=== PATIENT | male | born 1995 | race Caucasian/White ===

== ENCOUNTER 2023-01-27 20:18 | Emergency (ER) | payer OTHER ==
[2023-01-27 20:46] LABS: MUDS CUTOFF CONCENTRATIONS CUTOFF CONC BELOW:
[2023-01-27 20:48] LABS: BILIRUBIN,URINE NEGATIVE (NEGATIVE); GLUCOSE, URINE (UA) NEGATIVE (NEGATIVE); KETONES,URINE (UA) NEGATIVE (NEGATIVE); LEUKOCYTE ESTERASE, URINE NEGATIVE (NEGATIVE); NITRITE,URINE NEGATIVE (NEGATIVE); OCCULT BLOOD,URINE NEGATIVE (NEGATIVE); PH,URINE 6.5 PH (5.0-7.5); PROTEIN,URINE 100 mg/dL (NEGATIVE); UROBILINOGEN,URINE 0.2 (NORMAL) E.U./dL (NORMAL)
[2023-01-27 20:50] LABS: CLARITY,URINE CLEAR (CLEAR)
[2023-01-27 20:56] LABS: BASOPHILS % (AUTO) 0.8 %; EOSINOPHILS % (AUTO) 0.2 %; HCT - HEMATOCRIT 49.6 % (42.0-52.0); HGB - HEMOGLOBIN 16.8 g/dL (14.0-18.0); LYMPHOCYTES # (AUTO) 2.1 10^3/uL (1.5-3.5); MEAN CORPUSCULAR HEMOGLOBIN 30.3 pg (27.0-31.0); MEAN CORPUSCULAR HGB CONC 33.9 g/dL (32.0-36.0); MEAN CORPUSCULAR VOLUME 89.5 fL (80.0-94.0); MEAN PLATELET VOLUME 8.9 fL (7.4-11.4); MONOCYTES # (AUTO) 0.4 10^3/uL (0.0-1.0); MONOCYTES % (AUTO) 7.4 %; NEUTROPHILS # (AUTO) 2.5 10^3/uL (1.5-6.6); NEUTROPHILS % (AUTO) 49.4 %; PLT - PLATELET COUNT 292 10^3/uL (130-450); RED BLOOD COUNT 5.54 10^6/uL (4.70-6.10)
[2023-01-27 21:00] LABS: AMPHETAMINE SCREEN,URINE NEGATIVE (NEGATIVE); BARBITURATE SCREEN,UR NEGATIVE (NEGATIVE); BENZODIAZEPINES SCREEN, URINE NEGATIVE (NEGATIVE); COCAINE SCREEN URINE NEGATIVE (NEGATIVE); METHADONE SCREEN, URINE NEGATIVE (NEGATIVE); METHAMPHETAMINES SCREEN, URINE NEGATIVE (NEGATIVE); OPIATE SCREEN, URINE NEGATIVE (NEGATIVE); OXYCODONE SCREEN, URINE NEGATIVE (NEGATIVE); PROPOXYPHENE SCREEN, URINE NEGATIVE (NEGATIVE); THC CANNABINOID SCREEN, URINE NEGATIVE (NEGATIVE); TRICYCLIC ANTIDEPRESSANT,URINE NEGATIVE (NEGATIVE)
[2023-01-27 21:02] LABS: BACTERIA,URINE None Seen /HPF (None Seen); MUCUS,URINE Few Strands; RBC,URINE 0-5 /HPF (0-5); SQUAMOUS EPITHELIAL CELL,UR NONE SEEN (<= Few); WBC,URINE 0-3 /HPF (0-3)
[2023-01-27 21:10] LABS: ACETAMINOPHEN < 10 ug/mL (10-30); ALBUMIN 4.8 g/dL (3.2-5.5); ALBUMIN/GLOBULIN RATIO 1.5 (1.0-2.2); ALKALINE PHOSPHATASE 44 IU/L (42-121); ALT ALANINE AMINOTRANSFERASE 32 IU/L (10-60); AST ASPARTATE AMINOTRANSFERASE 24 IU/L (10-42); BUN - BLOOD UREA NITROGEN 14 mg/dL (6-20); CALCIUM 9.6 mg/dL (8.5-10.3); CARBON DIOXIDE - CO2 26 mmol/L (21-32); CHLORIDE 103 mmol/L (101-111); CREATININE 0.9 mg/dL (0.6-1.2); ETOH - ETHANOL < 5.0 mg/dL; GFR - MDRD 102 (>89); GLUCOSE 107 mg/dL (70-100); LIPASE 25 U/L (22-51); POTASSIUM 3.7 mmol/L (3.5-5.0); SALICYLATE < 6.0 mg/dL; SODIUM 140 mmol/L (135-145)
--- NOTE | 2023-01-27 21:13 | ED Physician Documentation ---
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 Patient reports at times having thoughts of hurting himself but states that he loves his parents too much and would never actually do anything to hurt himself. He has denied ever attempting to harm himself in the past. He has occasionally been seen at the behavioral clinic at the formerly [facility] for depression. He states that at 1 point he was given 4 pills of Zoloft while he was on a boat. 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 He reports stressors in his personal and job life. He had a DUI 1 month ago. He reports drinking on the weekends. No drug use. No hallucinations. He lives in the [facility]. Review of Systems Constitutional: denies: Fever Cardiac: denies: Chest pain / pressure Respiratory: denies: Dyspnea GI: denies: Abdominal Pain Psychiatric: reports: Depressed PD PAST MEDICAL HISTORY - Present Medications Home Medications: Ambulatory Orders Medication Instructions Recorded Confirmed Sertraline [Zoloft] 50 mg PO DAILY #30 tablet 01/27/23 traZODone [Desyrel] 100 mg PO HS 14 Days #28 tablet 01/27/23 - Allergies Allergies/Adverse Reactions: Allergies Allergy/AdvReac Type Severity Reaction Status Date / Time No Known Drug Allergies Allergy Verified 01/27/23 20:37 PD ED PE NORMAL - General General: Alert and oriented X 3, No acute distress, Well developed/nourished - HEENT HEENT: Atraumatic - Neck Neck: Supple, no meningeal sign - Cardiac Cardiac: RRR, No murmur - Respiratory Respiratory: No respiratory distress, Clear bilaterally - Abdomen Abdomen: Soft, Non tender - Derm Derm: Warm and dry - Neuro Neuro: Alert and oriented X 3, No motor deficit, Normal speech Results - Vitals Vitals: Vital Signs - 24 hr 01/27/23 01/27/23 20:26 23:22 Temperature 36.8 C Heart Rate 65 69 Respiratory 18 16 Rate Blood Pressure 146/91 H 149/82 H O2 Saturation 99 100 Oxygen O2 Source Room air - Labs Labs: Laboratory Tests 01/27/23 01/27/23 01/27/23 20:40 20:50 20:50 WBC 5.0 RBC 5.54 Hgb 16.8 Hct 49.6 MCV 89.5 MCH 30.3 MCHC 33.9 RDW 12.0 Plt Count 292 MPV 8.9 Neut # (Auto) 2.5 Lymph # (Auto) 2.1 Barry # (Auto) 0.4 Eos # (Auto) 0.0 Baso # (Auto) 0.0 Absolute Nucleated RBC 0.00 Nucleated RBC % 0.0 Sodium 140 Potassium 3.7 Chloride 103 Carbon Dioxide 26 Anion Gap 11.0 BUN 14 Creatinine 0.9 Estimated GFR (MDRD) 102 Glucose 107 H Calcium 9.6 Total Bilirubin 1.0 AST 24 ALT 32 Alkaline Phosphatase 44 Total Protein 8.0 Albumin 4.8 Globulin 3.2 Albumin/Globulin Ratio 1.5 Lipase 25 TSH Urine Color YELLOW Urine Clarity CLEAR Urine pH 6.5 Ur Specific Mize >=1.030 H Urine Protein 100 H Urine Glucose (UA) NEGATIVE Urine Ketones NEGATIVE Urine Occult Blood NEGATIVE Urine Nitrite NEGATIVE Urine Bilirubin NEGATIVE Urine Urobilinogen 0.2 (NORMAL) Ur Leukocyte Esterase NEGATIVE Urine RBC 0-5 Urine WBC 0-3 Ur Squamous Epith Cells NONE SEEN Urine Bacteria None Seen Urine Mucus Few Strands Ur Microscopic Review INDICATED Urine Culture Comments NOT INDICATED Salicylates < 6.0 Urine Opiates Screen NEGATIVE Ur Oxycodone Screen NEGATIVE Urine Methadone Screen NEGATIVE Ur Propoxyphene Screen NEGATIVE Acetaminophen < 10 L Ur Barbiturates Screen NEGATIVE Ur Tricyclics Screen NEGATIVE Ur Phencyclidine Scrn NEGATIVE Ur Amphetamine Screen NEGATIVE U Methamphetamines Scrn NEGATIVE U Benzodiazepines Scrn NEGATIVE Urine Cocaine Screen NEGATIVE U Cannabinoids Screen NEGATIVE Ethyl Alcohol < 5.0 01/27/23 20:50 WBC RBC Hgb Hct MCV MCH MCHC RDW Plt Count MPV Neut # (Auto) Lymph # (Auto) Barry # (Auto) Eos # (Auto) Baso # (Auto) Absolute Nucleated RBC Nucleated RBC % Sodium Potassium Chloride Carbon Dioxide Anion Gap BUN Creatinine Estimated GFR (MDRD) Glucose Calcium Total Bilirubin AST ALT Alkaline Phosphatase Total Protein Albumin Globulin Albumin/Globulin Ratio Lipase TSH 1.95 Urine Color Urine Clarity Urine pH Ur Specific Mize Urine Protein Urine Glucose (UA) Urine Ketones Urine Occult Blood Urine Nitrite Urine Bilirubin Urine Urobilinogen Ur Leukocyte Esterase Urine RBC Urine WBC Ur Squamous Epith Cells Urine Bacteria Urine Mucus Ur Microscopic Review Urine Culture Comments Salicylates Urine Opiates Screen Ur Oxycodone Screen Urine Methadone Screen Ur Propoxyphene Screen Acetaminophen Ur Barbiturates Screen Ur Tricyclics Screen Ur Phencyclidine Scrn Ur Amphetamine Screen U Methamphetamines Scrn U Benzodiazepines Scrn Urine Cocaine Screen U Cannabinoids Screen Ethyl Alcohol PD Medical Decision Making - ED course Complexity details: reviewed results, re-evaluated patient, d/w patient ED course: 2114: Labs Reviewed without any significant findings. Patient is medically cleared. Telepsychiatry consult has been requested. Patient presenting for evaluation of depression and having passive suicidal thoughts. Vital signs appear stable and patient has been medically cleared. He is acting appropriately here and does not appear intoxicated. He was seen by telepsychiatry. They feel at this time that he is safe for outpatient management. They do recommend we start him on Zoloft as well as trazodone. Patient is agreeable to these medications. He additionally understands that he needs to have close follow-up at the [facility]. I did also give him information for [facility] if he wants to pursue counseling services there. He feels safe going home tonight and Understands that he can return at anytime with any worsening symptoms. 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 If it anytime you have thoughts of hurting yourself or feeling worse please call 911 or return to the emergency department. [facility] Another resource for counseling in the community is through [facility]: Follow-up with [facility] at [phone] to schedule psychiatric care and counseling. Forms: Activity restrictions Discharge Date/Time: 01/27/23 23:35
--- NOTE | 2023-01-27 22:51 | TELEPSYCH PHYS NOTE ---
Telepsych Consultation Note Consult: Name: JUSTIN WEAVERB: 09/04/1940 DateandTime: 01/28/2023 1:23:07 AM Location of the patient: [facility] EDLocation of the doctor: Jose Length of consult: 1 hour This evaluation was conducted via video telepsychiatry with the assistance of onsite staff Reason for consult: SI, depression Requested by: DR KUMAR History of Present Illness: Provider/nurse contacted: SANDRA Canas, Dr. Kenney Psych consulted for: SI Chief complaint: I am extremely depression. Psych Consult HPI: Pt is a 27yo M with a past psych hx of depression, PTSD who presents for SI. Pt admits to SI w/ no plan or intention for off and on for 2 months. Endorses severe depression. Stressors include insomnia, work stress, DUI recently, car . Pt has no past psych hospitalizations and prior SAs. Endorses insomnia issues 05/14. Denies recent PTSD sxs. Pt does not feel he is a current danger to himself. Admits binge drinking on the week, bottle of bourbon on weekend days. Pt has never been treated with psych meds. Denies HI/AVH. [employer], Abdulaziz Cain [phone], has severe depression but no concerns of suicide at this time. Pt is safe to be DCd home. 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 Patient reports at times having thoughts of hurting himself but states that he loves his parents too much and would never actually do anything to hurt himself. He has denied ever attempting to harm himself in the past. He has occasionally been seen at the behavioral clinic at the [employer] [facility] for depression. He states that at 1 point he was given 4 pills of Zoloft while he was on a boat. 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 He reports stressors in his personal and job life. He had a DUI 1 month ago. He reports drinking on the weekends. No drug use. No hallucinations. He lives in the [facility]. Collateral Contacted: YesCollateral name:[employer], Abdulaziz Ferrara- [phone] phone number:Collateral relationship to the patient: Sleep issues?: YesSleep Quantity:Sleep Quality: Psychiatric History/Treatment History: Past diagnoses: depression, PTSD Hospitalizations: No Current Treatment:No Suicide Assessment: PSS-3: 1) Over the past 2 weeks have you felt down, depressed or hopeless?Yes 2) Over the past 2 weeks have you had thoughts of killing yourself?Yes 3) Have you ever in your life attempted to kill yourself?No Within the past 6 months? PSS-3 Secondary Screen: 1) Positive on PSS-3 questions 2 & 3 active SI with a past attempt?No 2) Have you been thinking about how you might kill yourself?No 3) Have you had some intention of acting on your thoughts?No 4) Lifetime psychiatric hospitalization?No 5) Has drinking or substance abuse ever been a problem for you?Yes 6) Current irritability, agitation, or aggression?No PSS-3 Secondary Screen Scoring: Mild Notes: Mild(0-2) No current attempt and no plan/intent Moderate(3-4) No current attempt, Plan OR intent but not both Severe(5-6) [facility] Safety Assessment: Risk Factors Stressors: insomnia, work stress, DUI recently, car Attempts/Self-injury: No Impulsivity:No Drug/Alcohol History:YesDescription: Trauma History:YesDescription:PTSD Access to firearms:No HI/Violence/Property destruction:No Legal: YesDescription:recent DUI Family Psych History:YesDescription:"they are all crazy" Family History of suicide: Protective Factors: Can handle stress well?No Yarsanism?Unknown-NA External: Social supports/ Therapeutic relationships: YesDescription: Relationship history: single Living situation: lives in housing Employment: YesDescription: Education: completed HS Responsibility to family/children/work: YesDescription: Future orientation:YesDescription: Health History: Medical History: denies Medications & Freq: denies Allergies: NKDA Mental Status Exam: Appearance and Attire:Normal Psychomotor agitation:No abnormality Attitude and behavior:Cooperative Speech:No abnormality, Mood:Depressed Affect:Constricted Thought process:Linear Thought content:No abnormality Perception: Intel:Above average Abstract:Appropriate Language:No abnormality Orientation:Oriented x 4 Sense:Normal Knowledge:Appropriate for education and socioeconomic status Memory:Intact Insight:Appropriate Judgement:Appropriate Gait:No abnormality Impression/Risk Assessment: Current Suicide Risk Elevated?No Current Violence Risk Elevated?No Issues with ability to care for self?No Summary: Clinical impression: Mood d/o NOS Current Suicide Risk: low Current Violence Risk: low Suicide Risk Detail Assessment 3 mo.suic.&self-inj behavior: no actual suicidal attempt Lifetime-suic.&self-inj behavior: no actual suicidal attempt Most severe SI past month: no suicide thoughts Risk Assessment: Pt appears to be low risk for harm to self or others as evidenced by denial of SI/HI/AVH. No delusions, disorganization, aggression n oted. Pt is a 27yo M with a past psych hx of depression, PTSD who presents for SI. Pt denies any plan or intent and is not currently endorsing SI. They have never had a SA or been placed in psych hospital before. Per staff, Pt has been calm, cooperative, logical. Denying SI/HI/AVH. No concerns. Pt states that they feel safe with going home. Pt states they feel confident they will not try to harm themselves. If Pt has any concerns that she is a danger to themselves, * will call 911 or present to the hospital. [employer], Abdulaziz Ferrara- [phone], has severe depression but no conc erns of suicide at this time. Pt is safe to be DCd home. Pt agrees to Safety Plan: 1. Reduction of lethal means (gun, pills). 2. Family is willing to check Pt frequently and monitor Pt. 3. Has coping plan for worsening SI/depression: talk to someone, call 911, return to ED. 4. Family agrees with plan - Recommendations 1. Pt does not meet criteria for involuntary inpatient psych admission. May be DCd once medically appropriate. 2. Meds Start: Zoloft 50mg QAM for depression/anxiety Start: Trazodone 100mg QHS for insomnia 3. Recommend outpatient f/u psych visit 4. Pt will benefit from counseling resources for post DC. Please consult psychiatry in 24 to 48 hours for reevaluation if considered appropriate. Discussed with provider on duty Thank you for this consult. This note serves as a written report of findings/recommendations and has been made available to the requesting provider. 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 Pablito Calle Other: List names and roles of persons who participated in consult: Dr. Pablito Calle
[2023-01-27] MEDS ORDERED: traZODone 50 MG TABLET PO STA (23:01)
[2023-01-27] MEDS ORDERED: ACETAMINOPHEN 325 MG TABLET PO STA (23:01)
[2023-01-27 23:26] VITALS: BP 149/82
== END 2023-01-27 23:35 | disposition home or self-care (01) ==
LOC: ED 20:18
DX: F32.A Depression, unspecified (principal)
CPT/HCPCS: 36415; 80053; 80306; 80307; 80320; 80329; 81001; 83690; 84443; 85025; 90834; 99283; 99284; A9270; Q3014; 81003; 87086